=== PATIENT | female | born 1990 | race Caucasian/White ===

== ENCOUNTER 2021-07-21 10:52 | Emergency (ER) | payer OTHER, BC, MEDICAID, SELFPAY ==
[2021-07-21 11:10] VITALS: BP 128/85; PULSE 90; RESP 14; TEMP 37.3; O2SAT 99; BMI 32.6
[2021-07-21 11:22] VITALS: BMI 32.6
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
[2021-07-21 11:27] VITALS: BP 128/85; PULSE 90; RESP 14; TEMP 37.3; O2SAT 99
[2021-07-21 12:36] VITALS: BP 123/73; PULSE 80; RESP 14; TEMP 37.1; O2SAT 99
== END 2021-07-21 12:37 | disposition home or self-care (01) ==
PROVIDERS: Emergency Provider Physician Assistant
DX: S13.9XXA Sprain of joints and ligaments of unspecified parts of neck, initial encounter (principal); M25.562 Pain in left knee; M25.512 Pain in left shoulder; V89.2XXA Person injured in unspecified motor-vehicle accident, traffic, initial encounter
CPT/HCPCS: 70450; 72040; 73562; 99281